=== PATIENT | male | born 1980 | race Two or more races ===

== ENCOUNTER 2018-12-01 20:57 | Inpatient (IN) | payer OTHER ==
[~2018-12-01] VITALS: Ht 172.7 cm; Wt 88.0 kg
[2018-12-01] MEDS ORDERED: ONDANSETRON HCL 4 MG/2 ML VIAL IVP ONE (21:30)
[2018-12-01] MEDS ORDERED: CloNIDine HCL 0.2 MG TABLET PO ONE (21:30)
[2018-12-01] MEDS ORDERED: SODIUM CHLORIDE 0.9% 1,000 ML IV ONE (21:30)
[2018-12-01] MEDS ORDERED: AMOXICILLIN TRIHYDRATE 250 MG CAPSULE PO ONE (22:30)
[2018-12-01] MEDS ORDERED: ACETAMINOPHEN 325 MG TABLET PO PRN (22:30)
[2018-12-01] MEDS ORDERED: ONDANSETRON HCL 4 MG/2 ML VIAL IVP PRN (22:30)
[2018-12-01] MEDS ORDERED: 0.9% SODIUM CHLORIDE 10 ML SYRINGE IVP PRN ×2 (22:30→22:45)
[2018-12-01] MEDS ORDERED: MAGNESIUM SULFATE 2 GM/WATER 50 ML IV PRN (22:45)
[2018-12-01] MEDS ORDERED: MAGNESIUM SULFATE 4 GM/WATER 100 ML IV PRN (22:45)
[2018-12-01] MEDS ORDERED: MAGNESIUM OXIDE 400 MG TABLET PO PRN (22:45)
[2018-12-01] MEDS ORDERED: MAGNESIUM SULFATE 2 GM, MVI, ADULT NO.1 WITH VIT K 10 ML, THIAMINE HCL 100 MG, FOLIC AC... IV ONE ×5 (22:45)
[2018-12-01] MEDS ORDERED: POTASSIUM CHLORIDE 20 MEQ ER TABLET PO PRN (22:45)
[2018-12-01] MEDS ORDERED: LORazepam 2 MG/ML VIAL IVP ONE (22:45)
[2018-12-01] MEDS ORDERED: POTASSIUM CHL 10 MEQ/WATER 50 ML IV PRN (22:45)
[2018-12-01 22:51] LABS: BASOPHILS % (AUTO) 0.5 % (0.0-2.0); EOSINOPHILS % (AUTO) 1.8 % (1.0-6.0); HEMATOCRIT 34.6 % (41-53); HEMOGLOBIN 11.5 g/dL (13.5-17.5); LYMPHOCYTES # (AUTO) 1.4 K/uL (1.0-4.8); LYMPHOCYTES % (AUTO) 17.1 % (22.0-44.0); MEAN CORPUSCULAR HEMOGLOBIN 28.1 pg (26.0-34.0); MEAN CORPUSCULAR HGB CONC 33.3 G/dL (31.0-37.0); MEAN CORPUSCULAR VOLUME 84 fL (80-100); MONOCYTES # (AUTO) 0.6 K/uL (0.1-1.0); MONOCYTES % (AUTO) 7.3 % (2.0-9.0); NEUTROPHILS # (AUTO) 6.2 K/uL (1.8-7.7); NEUTROPHILS % (AUTO) 73.3 % (40.0-70.0); PLATELET COUNT (AUTO) 300 K/uL (150-450); RED CELL DISTRIBUTION WIDTH 13.8 % (11.5-14.5)
[2018-12-01 23:01] LABS: ANION GAP 7 mmol/L (8-16); CALCIUM, TOTAL 9.7 mg/dL (8.8-10.5); CARBON DIOXIDE 26 mmol/L (22-29); CHLORIDE 107 mmol/L (98-107); CREATININE 0.81 mg/dL (0.60-1.30); GLOMERULAR FILTR. RATE CALC > 60 mL/min (>60); GLUCOSE,RANDOM 113 mg/dL (70-110); POTASSIUM 3.8 mmol/L (3.5-5.1); SODIUM SERUM 140 mmol/L (136-145); UREA NITROGEN, BLOOD 14 mg/dL (7-18)
[2018-12-01 23:07] LABS: ALANINE AMINOTRANSFERASE 16 U/L (12-78); ALBUMIN 3.6 g/dL (3.4-5.0); ALKALINE PHOSPHATASE 75 U/L (46-116); ASPARTATE AMINOTRANSFERASE 14 U/L (15-37); BILIRUBIN,TOTAL 0.4 mg/dL (0.1-1.0); TOTAL PROTEIN, SERUM 7.5 g/dL (6.4-8.2)
[2018-12-01 23:50] VITALS: BP 139/74
[2018-12-02] MEDS: ZOLPIDEM TARTRATE 5 MG TABLET PO PRN (00:10)
[2018-12-02] MEDS: LORazepam 2 MG/ML VIAL IVP PRN ×3 (00:14→16:30)
[2018-12-02 00:55] LABS: AMPHET/METH SCREEN,URINE NEGATIVE (NEGATIVE); BARBITURATE SCREEN, URINE NEGATIVE (NEGATIVE); BENZODIAZEPINES SCREEN,URINE NEGATIVE (NEGATIVE); CANNABINOID SCREEN,URINE NEGATIVE (NEGATIVE); COCAINE SCREEN,URINE NEGATIVE (NEGATIVE); METHADONE SCREEN, URINE NEGATIVE (NEGATIVE); OPIATE SCREEN,URINE POSITIVE (NEGATIVE); PHENCYCLIDINE SCREEN,URINE NEGATIVE (NEGATIVE)
[2018-12-02 04:00] VITALS: BP 97/54
[2018-12-02 06:51] LABS: BASOPHILS % (AUTO) 0.4 % (0.0-2.0); EOSINOPHILS % (AUTO) 0.7 % (1.0-6.0); HEMATOCRIT 34.8 % (41-53); HEMOGLOBIN 11.7 g/dL (13.5-17.5); LYMPHOCYTES # (AUTO) 1.3 K/uL (1.0-4.8); LYMPHOCYTES % (AUTO) 14.1 % (22.0-44.0); MEAN CORPUSCULAR HEMOGLOBIN 28.4 pg (26.0-34.0); MEAN CORPUSCULAR HGB CONC 33.5 G/dL (31.0-37.0); MEAN CORPUSCULAR VOLUME 85 fL (80-100); MONOCYTES # (AUTO) 0.6 K/uL (0.1-1.0); NEUTROPHILS # (AUTO) 6.9 K/uL (1.8-7.7); NEUTROPHILS % (AUTO) 77.8 % (40.0-70.0); PLATELET COUNT (AUTO) 306 K/uL (150-450); RED BLOOD CELL COUNT(AUTO) 4.12 MIL/uL (4.50-5.90); RED CELL DISTRIBUTION WIDTH 13.9 % (11.5-14.5)
[2018-12-02 06:53] LABS: ANION GAP 8 mmol/L (8-16); CALCIUM, TOTAL 9.2 mg/dL (8.8-10.5); CARBON DIOXIDE 26 mmol/L (22-29); CHLORIDE 108 mmol/L (98-107); GLOMERULAR FILTR. RATE CALC > 60 mL/min (>60); GLUCOSE,RANDOM 117 mg/dL (70-110); POTASSIUM 3.8 mmol/L (3.5-5.1); SODIUM SERUM 142 mmol/L (136-145); UREA NITROGEN, BLOOD 10 mg/dL (7-18)
[2018-12-02 07:20] VITALS: BP 109/59
[2018-12-02] MEDS: PANTOPRAZOLE SODIUM 40 MG DR TABLET PO SCH (08:08)
[2018-12-02 11:31] VITALS: BP 105/59
[2018-12-02] MEDS: ONDANSETRON HCL 4 MG/2 ML VIAL IVP PRN (12:56)
[2018-12-02 13:15] VITALS: BP 116/59
[2018-12-02] MEDS ORDERED: PROMETHAZINE HCL 25 MG TABLET PO PRN (18:15)
[2018-12-02] MEDS ORDERED: PROMETHAZINE HCL 25 MG RECTAL SUPPOSITORY PR PRN (19:00)
[2018-12-02 19:40] VITALS: BP 121/56
[2018-12-02 23:35] VITALS: BP 129/58
[2018-12-02] MEDS: LORazepam 2 MG TABLET PO PRN (23:57)
[2018-12-03] VITALS (7 sets, daily range): BP systolic 118–135; BP diastolic 55–79
[2018-12-03] MEDS: ONDANSETRON HCL 4 MG/2 ML VIAL IVP PRN ×3 (02:28→15:32)
[2018-12-03 06:24] LABS: ANION GAP 11 mmol/L (8-16); CALCIUM, TOTAL 9.1 mg/dL (8.8-10.5); CARBON DIOXIDE 24 mmol/L (22-29); CHLORIDE 103 mmol/L (98-107); CREATININE 0.87 mg/dL (0.60-1.30); GLOMERULAR FILTR. RATE CALC > 60 mL/min (>60); GLUCOSE,RANDOM 128 mg/dL (70-110); POTASSIUM 3.6 mmol/L (3.5-5.1); SODIUM SERUM 138 mmol/L (136-145); UREA NITROGEN, BLOOD 12 mg/dL (7-18)
[2018-12-03 06:57] LABS: BASOPHILS % (AUTO) 0.5 % (0.0-2.0); EOSINOPHILS % (AUTO) 0.1 % (1.0-6.0); HEMATOCRIT 36.9 % (41-53); LYMPHOCYTES # (AUTO) 1.6 K/uL (1.0-4.8); LYMPHOCYTES % (AUTO) 16.6 % (22.0-44.0); MEAN CORPUSCULAR HEMOGLOBIN 27.6 pg (26.0-34.0); MEAN CORPUSCULAR HGB CONC 32.6 G/dL (31.0-37.0); MEAN CORPUSCULAR VOLUME 85 fL (80-100); MONOCYTES # (AUTO) 0.7 K/uL (0.1-1.0); MONOCYTES % (AUTO) 7.7 % (2.0-9.0); NEUTROPHILS # (AUTO) 7.2 K/uL (1.8-7.7); NEUTROPHILS % (AUTO) 75.1 % (40.0-70.0); PLATELET COUNT (AUTO) 323 K/uL (150-450); RED BLOOD CELL COUNT(AUTO) 4.36 MIL/uL (4.50-5.90); RED CELL DISTRIBUTION WIDTH 13.9 % (11.5-14.5)
[2018-12-03] MEDS: PANTOPRAZOLE SODIUM 40 MG DR TABLET PO SCH (09:20)
[2018-12-03] MEDS: LORazepam 2 MG/ML VIAL IVP PRN ×3 (09:23→21:53)
[2018-12-03] MEDS ORDERED: HYDROCODONE/ACETAMINOPHEN 5-325 MG TABLET PO ONE (18:45)
[2018-12-03] MEDS ORDERED: DEXTROSE 5%-0.45% SODIUM CHL 500 ML IV SCH (18:45)
[2018-12-03] MEDS: DEXTROSE 5%-0.45% SODIUM CHL 1,000 ML IV SCH (18:58)
[2018-12-04 04:35] VITALS: BP 124/68
[2018-12-04 07:35] VITALS: BP 132/80
[2018-12-04] MEDS: PANTOPRAZOLE SODIUM 40 MG DR TABLET PO SCH (08:07)
[2018-12-04] MEDS: LORazepam 2 MG TABLET PO PRN (08:07)
[2018-12-04] MEDS: DEXTROSE 5%-0.45% SODIUM CHL 1,000 ML IV SCH (08:09)
[2018-12-04 12:00] VITALS: BP 124/72
[2018-12-04] MEDS: FOLIC ACID 1 MG TABLET PO SCH (12:25)
[2018-12-04] MEDS: ChlordiazePOXIDE HCL 25 MG CAPSULE PO PRN (12:25)
[2018-12-04] MEDS: THIAMINE HCL 100 MG TABLET PO SCH (12:25)
[2018-12-04] MEDS: MULTIVITAMINS WITH MINERALS, THERAPEUTIC TABLET PO SCH (12:25)
[2018-12-04] MEDS: SODIUM CHLORIDE 0.9% 1,000 ML IV SCH ×2 (12:43→22:38)
[2018-12-04] MEDS: ONDANSETRON HCL 4 MG/2 ML VIAL IVP PRN (15:23)
[2018-12-04] MEDS: LORazepam 2 MG/ML VIAL IVP PRN ×2 (15:38→22:25)
[2018-12-04 16:20] VITALS: BP 124/50
[2018-12-04] MEDS: ZOLPIDEM TARTRATE 5 MG TABLET PO PRN (20:20)
[2018-12-04 20:27] VITALS: BP 117/63
[2018-12-04 23:30] VITALS: BP 131/70
[2018-12-05] MEDS: LORazepam 2 MG/ML VIAL IVP PRN ×2 (03:58→08:00)
[2018-12-05 05:55] VITALS: BP 129/75
[2018-12-05 06:08] LABS: BASOPHILS % (AUTO) 0.6 % (0.0-2.0); EOSINOPHILS % (AUTO) 1.1 % (1.0-6.0); HEMATOCRIT 39.1 % (41-53); HEMOGLOBIN 12.8 g/dL (13.5-17.5); LYMPHOCYTES % (AUTO) 21.1 % (22.0-44.0); MEAN CORPUSCULAR HEMOGLOBIN 27.8 pg (26.0-34.0); MEAN CORPUSCULAR HGB CONC 32.8 G/dL (31.0-37.0); MEAN CORPUSCULAR VOLUME 85 fL (80-100); MONOCYTES # (AUTO) 0.8 K/uL (0.1-1.0); MONOCYTES % (AUTO) 8.9 % (2.0-9.0); NEUTROPHILS # (AUTO) 6.5 K/uL (1.8-7.7); NEUTROPHILS % (AUTO) 68.3 % (40.0-70.0); PLATELET COUNT (AUTO) 312 K/uL (150-450); RED BLOOD CELL COUNT(AUTO) 4.62 MIL/uL (4.50-5.90); RED CELL DISTRIBUTION WIDTH 14.1 % (11.5-14.5)
[2018-12-05 06:15] LABS: ANION GAP 10 mmol/L (8-16); CALCIUM, TOTAL 9.1 mg/dL (8.8-10.5); CARBON DIOXIDE 25 mmol/L (22-29); CHLORIDE 103 mmol/L (98-107); CREATININE 0.91 mg/dL (0.60-1.30); GLOMERULAR FILTR. RATE CALC > 60 mL/min (>60); GLUCOSE,RANDOM 115 mg/dL (70-110); POTASSIUM 3.5 mmol/L (3.5-5.1); SODIUM SERUM 138 mmol/L (136-145); UREA NITROGEN, BLOOD 12 mg/dL (7-18)
[2018-12-05] MEDS: SODIUM CHLORIDE 0.9% 1,000 ML IV SCH (07:00)
[2018-12-05 07:51] VITALS: BP 121/70
[2018-12-05] MEDS: PANTOPRAZOLE SODIUM 40 MG DR TABLET PO SCH (07:55)
[2018-12-05] MEDS: MULTIVITAMINS WITH MINERALS, THERAPEUTIC TABLET PO SCH (07:55)
[2018-12-05] MEDS: FOLIC ACID 1 MG TABLET PO SCH (07:55)
[2018-12-05] MEDS: THIAMINE HCL 100 MG TABLET PO SCH (07:55)
[2018-12-05 11:19] VITALS: BP 131/77
[2018-12-05] MEDS: ChlordiazePOXIDE HCL 25 MG CAPSULE PO PRN (11:51)
[2018-12-05] MEDS ORDERED: FOLI1 PO (13:45)
[2018-12-05] MEDS ORDERED: THIA100T67 PO (13:46)
[2018-12-05] MEDS ORDERED: MULT-248 PO (13:46)
[2018-12-05] MEDS ORDERED: ALPR0.255 PO (13:47)
[2018-12-05] MEDS ORDERED: PANT40TA25 PO (13:48)
== END 2018-12-05 15:45 | disposition home or self-care (01) | DRG 392 ==
LOC: EMS 20:59 → 6S 22:39 → 5S 23:43 → 6S 23:54 → 5S 12-03 22:04
PROVIDERS: ADMIT Internal Medicine; ATTEND Internal Medicine
DX: R11.2 Nausea with vomiting, unspecified (principal); F17.210 Nicotine dependence, cigarettes, uncomplicated; R00.1 Bradycardia, unspecified; F11.90 Opioid use, unspecified, uncomplicated
CPT/HCPCS: 83735; 93005; 93306; 96374; 96375; 97110; 97116; 97162; G0480; J2060; J2405; J3411; J3475; J3490; J7030

== ENCOUNTER 2018-12-05 20:52 | Inpatient (IN) | payer OTHER ==
[~2018-12-05] VITALS: Ht 172.7 cm; Wt 86.4 kg
[~2018-12-05 20:52] MED LIST: ALPR0.255 PO; FOLI1 PO; MULT-248 PO; PANT40TA25 PO; THIA100T67 PO
[2018-12-05] MEDS ORDERED: SODIUM CHLORIDE 0.9% 1,000 ML IV ONE ×2 (21:06→21:45)
[2018-12-05] MEDS ORDERED: ONDANSETRON HCL 4 MG/2 ML VIAL IVP ONE (21:15)
[2018-12-05 21:29] LABS: APPEARANCE,URINE CLEAR (CLEAR); BILIRUBIN,URINE NEGATIVE (NEGATIVE); GLUCOSE, URINE (UA) NEGATIVE (NEGATIVE); KETONES,URINE NEGATIVE (NEGATIVE); LEUKOCYTE ESTERASE ,URINE NEGATIVE (NEGATIVE); NITRATE,URINE NEGATIVE (NEGATIVE); OCCULT BLOOD,URINE NEGATIVE (NEGATIVE); PH,URINE 5.5 (5.0-8.0); PROTEIN,URINE NEGATIVE (NEGATIVE); UROBILINOGEN,URINE 0.2 mg/dL (<=1.0)
[2018-12-05 21:34] LABS: AMPHET/METH SCREEN,URINE NEGATIVE (NEGATIVE); BARBITURATE SCREEN, URINE NEGATIVE (NEGATIVE); BENZODIAZEPINES SCREEN,URINE POSITIVE (NEGATIVE); CANNABINOID SCREEN,URINE NEGATIVE (NEGATIVE); COCAINE SCREEN,URINE NEGATIVE (NEGATIVE); METHADONE SCREEN, URINE NEGATIVE (NEGATIVE); OPIATE SCREEN,URINE POSITIVE (NEGATIVE)
[2018-12-05 21:35] LABS: PHENCYCLIDINE SCREEN,URINE NEGATIVE (NEGATIVE)
[2018-12-05] MEDS ORDERED: POTASSIUM CHL 10 MEQ/WATER 50 ML IV PRN (21:45)
[2018-12-05] MEDS ORDERED: MAGNESIUM SULFATE 4 GM/WATER 100 ML IV PRN (21:45)
[2018-12-05] MEDS ORDERED: MAGNESIUM SULFATE 2 GM/WATER 50 ML IV PRN (21:45)
[2018-12-05] MEDS ORDERED: POTASSIUM CHLORIDE 20 MEQ ER TABLET PO PRN (21:45)
[2018-12-05] MEDS ORDERED: ONDANSETRON HCL 4 MG/2 ML VIAL IVP PRN (21:45)
[2018-12-05] MEDS ORDERED: ZOLPIDEM TARTRATE 5 MG TABLET PO PRN (21:45)
[2018-12-05] MEDS ORDERED: MAGNESIUM OXIDE 400 MG TABLET PO PRN (21:45)
[2018-12-05 22:09] LABS: BASOPHILS % (AUTO) 0.5 % (0.0-2.0); EOSINOPHILS % (AUTO) 1.5 % (1.0-6.0); HEMOGLOBIN 14.5 g/dL (13.5-17.5); LYMPHOCYTES # (AUTO) 2.2 K/uL (1.0-4.8); LYMPHOCYTES % (AUTO) 21.5 % (22.0-44.0); MEAN CORPUSCULAR HEMOGLOBIN 28.4 pg (26.0-34.0); MEAN CORPUSCULAR VOLUME 86 fL (80-100); MONOCYTES # (AUTO) 0.8 K/uL (0.1-1.0); MONOCYTES % (AUTO) 8.3 % (2.0-9.0); NEUTROPHILS # (AUTO) 6.8 K/uL (1.8-7.7); NEUTROPHILS % (AUTO) 68.2 % (40.0-70.0); PLATELET COUNT (AUTO) 290 K/uL (150-450); RED BLOOD CELL COUNT(AUTO) 5.13 MIL/uL (4.50-5.90); RED CELL DISTRIBUTION WIDTH 14.1 % (11.5-14.5)
[2018-12-05 23:07] LABS: ANION GAP 11 mmol/L (8-16); CALCIUM, TOTAL 9.2 mg/dL (8.8-10.5); CARBON DIOXIDE 24 mmol/L (22-29); CHLORIDE 105 mmol/L (98-107); CREATININE 1.01 mg/dL (0.60-1.30); GLOMERULAR FILTR. RATE CALC > 60 mL/min (>60); GLUCOSE,RANDOM 123 mg/dL (70-110); POTASSIUM 3.6 mmol/L (3.5-5.1); SODIUM SERUM 140 mmol/L (136-145); UREA NITROGEN, BLOOD 15 mg/dL (7-18)
[2018-12-05 23:22] LABS: ALANINE AMINOTRANSFERASE 37 U/L (12-78); ALBUMIN 3.7 g/dL (3.4-5.0); ALKALINE PHOSPHATASE 66 U/L (46-116); ASPARTATE AMINOTRANSFERASE 18 U/L (15-37); BILIRUBIN,TOTAL 0.4 mg/dL (0.1-1.0); LIPASE 174 U/L (73-393); TOTAL PROTEIN, SERUM 7.6 g/dL (6.4-8.2)
[2018-12-05 23:41] VITALS: BP 124/74
[2018-12-06] VITALS (7 sets, daily range): BP systolic 99–132; BP diastolic 48–70
[2018-12-06] MEDS: PANTOPRAZOLE SODIUM 40 MG DR TABLET PO SCH (08:07)
[2018-12-07 04:45] VITALS: BP 121/59
[2018-12-07 07:34] VITALS: BP 104/54
[2018-12-07] MEDS: PANTOPRAZOLE SODIUM 40 MG DR TABLET PO SCH (08:13)
[2018-12-07 11:20] VITALS: BP 102/64
== END 2018-12-07 13:45 | DRG 897 ==
LOC: EDUNIT# 20:52 → EMS 20:53 → 6S 22:00
PROVIDERS: ADMIT Internal Medicine; ATTEND Internal Medicine
DX: F11.23 Opioid dependence with withdrawal (principal); E86.0 Dehydration; F17.210 Nicotine dependence, cigarettes, uncomplicated; R00.1 Bradycardia, unspecified
CPT/HCPCS: 83735; 87081; 93005; J2405; J7030